=== PATIENT | female | born 1995 | race Caucasian/White ===

== ENCOUNTER 2016-10-08 03:57 | Emergency (ER) | payer BC, OTHER ==
[~2016-10-08] VITALS: Ht 165.1 cm; Wt 53.4 kg
[2016-10-08 04:02] VITALS: TEMP 36.7; Ht 165.1 cm; Wt 53.4 kg
[2016-10-08] MEDS ORDERED: ALUMINUM/MAGNESIUM SUSP 30 ML UDC PO STA (04:04)
[2016-10-08] MEDS ORDERED: LIDOCAINE HCL 2% VISC SOLN 20 ML UDC PO STA (04:04)
[2016-10-08] MEDS ORDERED: FAMOTIDINE 20MG/102 ML D5W IV STA (04:12)
[2016-10-08] MEDS ORDERED: PANTOprazole INJ 40 MG in SYRINGE 0 ML IV ONE (04:15)
[2016-10-08] MEDS ORDERED: CETI-41 PO (04:18)
[2016-10-08] MEDS ORDERED: SPIR50TA2 PO (04:18)
[2016-10-08] MEDS ORDERED: BCPILLS PO (04:18)
[2016-10-08 04:23] VITALS: O2SAT 99
[2016-10-08 04:37] LABS: HEMATOCRIT 38.9 % (37-47); MEAN CORPUSCULAR HEMOGLOBIN 30.2 pg (25-34); MEAN CORPUSCULAR HGB CONC 34.7 g/dl (32-36); MEAN PLATELET VOLUME 10.5 fL (7.4-10.4); PLATELET COUNT 272 K/uL (130-400); RED BLOOD COUNT 4.47 M/uL (4.2-5.4); WHITE BLOOD COUNT 8.97 K/uL (4.8-10.8)
[2016-10-08] MEDS ORDERED: SODIUM CHLORIDE 0.9% 1000ML 1,000 ML IV STA (04:39)
[2016-10-08] MEDS ORDERED: ONDANSETRON INJ 2 MG/ML 2 ML VIAL IV STA (04:39)
[2016-10-08 04:58] LABS: PREG INTERNAL NEGATIVE QC NEG CLEAR BACKGROUND; PREG INTERNAL POSITIVE QC POS CONTROL LINE
[2016-10-08 05:01] LABS: ALT/SGPT 22 U/L (12-78); AST/SGOT 18 U/L (15-37); BLOOD UREA NITROGEN 13 mg/dl (7-18); BUN/CREATININE RATIO 15.1 (10-20); CALCIUM 8.6 mg/dl (8.5-10.1); CARBON DIOXIDE 27 mmol/L (21-32); CHLORIDE 107 mmol/L (98-107); CREATININE 0.88 mg/dl (0.60-1.20); GLUCOSE 109 mg/dl (70-99); POTASSIUM 3.4 mmol/L (3.5-5.1); SODIUM 142 mmol/L (136-145)
[2016-10-08 05:02] LABS: BASO % 0.4 %; BASO ABS # 0.04 K/uL (0-0.2); COMPLETE YES; IG% 0.8 %; LYMPH % 55.7 %; MONO % 4.6 %; NEUT % 36.5 %
[2016-10-08] MEDS ORDERED: POTASSIUM CHLORIDE 10 MEQ TABCR PO STA (05:03)
[2016-10-08 05:04] LABS: ALKALINE PHOSPHATASE 70 U/L (45-117)
--- NOTE | 2016-10-08 05:04 | EMERGENCY ROOM VISIT NOTE ---
History First contact with patient: 04:02 Chief Complaint: ABDOMINAL PAIN Stated Complaint: CHEST PAIN, BURNING Nursing Triage Summary: c/o epigastric burning/pain that woke her from sleep 30 min [employer] with nausea. hx acid reflux History of Present Illness The patient is a 21 year old female who presents to the Emergency Room with complaints of epigastric burning with nausea for the past 30 minutes that woke her up out of sleep. Patient has a history of acid reflux. Patient states she had vodka Pasta for dinner and a half a bottle of white wine before bed. Patient denies dyspnea, abdominal pain, vomiting, diarrhea, back pain, fever, chills, lightheadedness or dizziness, leg pain or swelling. No recent travel. She does not smoke. She exercises regularly. Review of Systems See HPI for pertinent positives & negatives. A total of 10 systems reviewed and were otherwise negative. Past Medical/Surgical History Acne Social History Smoking Status: Never Smoker Smokeless Tobacco Use: No Alcohol Use: occasionally Drug Use: none Occupation Status: [employer] Current/Historical Medications Scheduled Control Pills ( Control Pills), 1 TAB PO DAILY Cetirizine HCl (Zyrtec Allergy), 10 MG PO DAILY Spironolactone (Aldactone), 50 MG PO BID Allergies Coded Allergies: No Known Allergies (Unverified , 10/08/16) Physical Exam Vital Signs Date Time Temp Pulse Resp B/P Pulse Ox O2 Delivery O2 Flow Rate FiO2 10/08/16 04:48 75 16 103/74 97 Room Air 10/08/16 04:42 80 10/08/16 04:23 99 Room Air 10/08/16 04:02 36.7 110 20 105/75 98 Room Air Physical Exam VITALS: Vitals are noted on the nurse's note and reviewed by myself. Vital signs stable. GENERAL: Pleasant female, in no acute distress, nondiaphoretic, well-developed well-nourished. SKIN: The skin was without rashes, erythema, edema, or bruising. There is no tenting of the skin. Capillary reflex less than 2 seconds. HEAD: Normocephalic atraumatic. EARS: External auditory canals clear, tympanic membranes pearly bueno without erythema or effusion bilaterally. EYES: Pupils equal round and reactive to light and accommodation. Conjunctivae without injection, sclerae without icterus. Extraocular movements intact. NOSE: Patent, turbinates without inflammation or discharge. MOUTH: Mucous membranes moist. Pharynx without erythema or exudate. Uvula midline. Airway patent. Tongue does not deviate. NECK: Supple without nuchal rigidity. No lymphadenopathy. No thyromegaly. Cervical spine is nontender. No JVD. HEART: Regular rate and rhythm without murmurs gallops or rubs. Chest nontender to palpation LUNGS: Clear to auscultation bilaterally without wheezes, rales or rhonchi. No dullness to percussion. No retractions or accessory muscle use. ABDOMEN: Positive bowel sounds x 4. Normal tympanic percussion. Soft, nontender, without masses or organomegaly. Montejo sign negative. No guarding or rebound tenderness. MUSCULOSKELETAL: No muscle atrophy, erythema, or edema noted. NEURO: Patient was alert and oriented to person place and time. Normal sensation to light and sharp touch. No focal neurological deficits. Medical Decision & Procedures Laboratory Results 10/08/16 04:10 Red Blood Count 4.47, Mean Corpuscular Volume 87.0, Mean Corpuscular Hemoglobin 30.2, Mean Corpuscular Hemoglobin Concent 34.7, Mean Platelet Volume 10.5, Neutrophils (%) (Auto) 36.5, Lymphocytes (%) (Auto) 55.7, Monocytes (%) (Auto) 4.6, Eosinophils (%) (Auto) 2.0, Basophils (%) (Auto) 0.4, Neutrophils # (Auto) 3.27, Lymphocytes # (Auto) 5.00, Monocytes # (Auto) 0.41, Eosinophils # (Auto) 0.18, Basophils # (Auto) 0.04 10/08/16 04:10 Test 10/08/16 04:10 10/08/16 04:17 White Blood Count 8.97 K/uL (4.8-10.8) Red Blood Count 4.47 M/uL (4.2-5.4) Hemoglobin 13.5 g/dL (12.0-16.0) Hematocrit 38.9 % (37-47) Mean Corpuscular Volume 87.0 fL (80-100) Mean Corpuscular Hemoglobin 30.2 pg (25-34) Mean Corpuscular Hemoglobin Concent 34.7 g/dl (32-36) Platelet Count 272 K/uL (130-400) Mean Platelet Volume 10.5 fL (7.4-10.4) Neutrophils (%) (Auto) 36.5 % Lymphocytes (%) (Auto) 55.7 % Monocytes (%) (Auto) 4.6 % Eosinophils (%) (Auto) 2.0 % Basophils (%) (Auto) 0.4 % Neutrophils # (Auto) 3.27 K/uL (1.4-6.5) Lymphocytes # (Auto) 5.00 K/uL (1.2-3.4) Monocytes # (Auto) 0.41 K/uL (0.11-0.59) Eosinophils # (Auto) 0.18 K/uL (0-0.5) Basophils # (Auto) 0.04 K/uL (0-0.2) RDW Standard Deviation 40.8 fL (36.4-46.3) RDW Coefficient of Variation 12.7 % (11.5-14.5) Immature Granulocyte % (Auto) 0.8 % Immature Granulocyte # (Auto) 0.07 K/uL (0.00-0.02) Anion Gap 8.0 mmol/L (3-11) Est Creatinine Clear Calc Drug Dose 84.5 ml/min Estimated GFR () 108.1 Estimated GFR (Non- 93.3 BUN/Creatinine Ratio 15.1 (10-20) Calcium Level 8.6 mg/dl (8.5-10.1) Direct Bilirubin < 0.1 mg/dl (0-0.2) Aspartate Amino Transf (AST/SGOT) 18 U/L (15-37) Alanine Aminotransferase (ALT/SGPT) 22 U/L (12-78) Albumin 3.7 gm/dl (3.4-5.0) Lipase 110 U/L (73-393) Human Chorionic Gonadotropin, Qual NEG (NEG) Bedside Troponin I 0.000 ng/ml (0-0.045) Medications Administered Medications (Trade) Dose Ordered Sig/Phylicia Route Start Time Stop Time Status Last Admin Dose Admin Lidocaine HCl (Viscous Lidocaine 2% Soln) 10 ml NOW STAT PO 10/08/16 04:04 10/08/16 04:05 DC 10/08/16 04:09 10 ML Al Hydroxide/Mg Hydroxide (Maalox Susp) 30 ml NOW STAT PO 10/08/16 04:04 10/08/16 04:05 DC 10/08/16 04:09 30 ML Famotidine 20 mg 20 mg ONE STAT IV 10/08/16 04:12 10/08/16 04:14 DC 10/08/16 04:20 20 MG Pantoprazole Sodium/Syringe (Protonix Inj/ Syringe) 10 ml @ 5 mls/min NOW ONCE IV 10/08/16 04:15 10/08/16 04:16 DC 10/08/16 04:24 5 MLS/MIN Ondansetron HCl 4 mg 4 mg NOW STAT IV 10/08/16 04:39 10/08/16 04:40 DC 10/08/16 04:47 4 MG Sodium Chloride (Nss 1000ml) 1,000 ml @ 999 mls/hr Q1H1M STAT IV 10/08/16 04:39 10/08/16 05:39 10/08/16 04:46 999 MLS/HR ED Course Prior records/ancillary studies reviewed. Triage Nursing notes reviewed. The patient's history was concerning for epigastric pain. Differential diagnosis: Etiologies such as gastritis, esophageal spasm, cardiac ischemia, aortic dissection, pulmonary embolism, pneumonia, pneumothorax, musculoskeletal, infections, pericarditis, myocarditis, esophageal rupture, gastrointestinal, as well as others were entertained. Physical examination: As above. ER treatment provided: GI cocktail, Pepcid On reassessment the patient felt better. Diagnostic interpretation by me: The electrocardiogram was negative for pathologic change. Normal sinus, normal intervals, no acute ST-T wave changes. Impression normal sinus rhythm interpreted by myself The labs revealed Negative Troponin Imaging studies: Chest x-ray with no acute consolidation, pneumothorax or free air interpreted by myself Exam and history seem consistent with gastritis vs esophageal spasm. Patient felt much better to be medicated as above. She's had intermittent history of reflux. She is advised to take Protonix daily for next 2 weeks and avoid acidic foods. She is advised follow-up with health services in a few days or here in the ER sooner for chest pain, difficulty breathing, vomiting, black or blood in her stool, worsening signs or symptoms or as needed. Patient had a normal EKG. Negative troponin. She was well-appearing. By the evaluation outlined above emergent etiologies such as cardiac ischemia, aortic dissection, pulmonary embolism, pneumonia, pneumothorax, infections, pericarditis, myocarditis, gastrointestinal, as well as others were deemed relatively unlikely. The pt informed about the findings as listed above. All questions were answered and pleased with the treatment. Return instructions were outlined and the patient was discharged in stable condition. Outpatient prescription management: Protonix Referral: The patient was referred back to primary care physician for follow-up in 2 to 3 days for a recheck of the current condition. Case reviewed with my attending. Medical Decision As above Impression Primary Impression: GERD (gastroesophageal reflux disease) Additional Impression: Abdominal discomfort, epigastric Departure Information Dispostion Home / Self-Care Condition GOOD Referrals No Doctor, Assigned (PCP) Patient Instructions My [facility] Additional Instructions Protonix 40 m tablet daily for next 2 weeks. Take this on an empty stomach. Try Maalox or Zantac for breakthrough symptoms for reflux. Avoid large meals. Avoid acidic foods. Rest and drink plenty of fluids as tolerated. Continue current medications. Avoid strenuous activities and anything that worsens your pain. Resume normal activities once your symptoms resolve. Return to the ER immediately for worsening or persistent chest pain, abdominal pain, black or blood in your stools, vomiting, fevers, chest pains, difficulty breathing, worsening of your condition, or as needed. Follow up with your primary physician in 2-3 days for a recheck of your current condition. Problem Qualifiers Primary Impression: GERD (gastroesophageal reflux disease) Esophagitis presence: esophagitis presence not specified Qualified Codes: K21.9 - Gastro-esophageal reflux disease without esophagitis
[2016-10-08] MEDS ORDERED: PANT40TA PO (05:06)
[2016-10-08 05:27] VITALS: BP 90/65; PULSE 85; O2SAT 100
--- NOTE | 2016-10-08 08:03 | DIAGNOSTIC IMAGING REPORT ---
SINGLE VIEW CHEST CLINICAL HISTORY: Atypical chest pain. FINDINGS: An AP, portable, upright chest radiograph is obtained. No prior studies are available for comparison at the time of dictation. The examination is mildly degraded by portable technique and patient rotation. The cardiomediastinal silhouette is unremarkable. The lungs and pleural spaces are clear. No pneumothorax is seen. The bony thorax is grossly intact. IMPRESSION: No active disease in the chest. Electronically signed by: Kwabena Solares M.D. 10/08/2016 8:01 AM Dictated Date/Time: 10/08/2016 8:01 AM
== END 2016-10-08 05:28 | disposition home or self-care (01) ==
LOC: C.EDB 03:59
DX: K21.9 Gastro-esophageal reflux disease without esophagitis (principal); R10.13 Epigastric pain; Z79.3 Long term (current) use of hormonal contraceptives; Z79.899 Other long term (current) drug therapy